=== PATIENT | female | born 1990 | race Caucasian/White ===

== ENCOUNTER 2016-10-13 18:42 | Emergency (ER) | payer OTHER ==
[~2016-10-13] VITALS: Ht 167.6 cm; Wt 100.0 kg
[~2016-10-13 18:42] MED LIST: BIRTH CONTROL PILL; CYMBALTA 60MG60 MG PO; IBU-8800 MG PO; LORTAB 5/500 501 TAB PO; LYRICA 75MG CAP75 MG PO; MOTRIN 800800 MG/TAB PO; NEURONTIN300 MG/CAP PO; NORCO 325 MG-51 TAB PO; OXY IR5 MG PO; TYLENOL EXTRA500 M1 PO
[2016-10-13 18:45] VITALS: TEMP 98
[2016-10-13 20:43] VITALS: BP 110/90; PULSE 86
== END 2016-10-13 20:43 | disposition home or self-care (01) ==
LOC: COL.ER 18:42
DX: R07.89 Other chest pain (principal); K21.9 Gastro-esophageal reflux disease without esophagitis; F17.210 Nicotine dependence, cigarettes, uncomplicated; Z82.49 Family history of ischemic heart disease and other diseases of the circulatory system

== ENCOUNTER → 2017-09-19 | Outpatient (CLI) | payer OTHER | LOC: MC.RAD 08:42 | DX: N64.52 Nipple discharge (principal); Z80.3 Family history of malignant neoplasm of breast ==